=== PATIENT | male | born 1965 ===

== ENCOUNTER 2017-09-15 10:47 | Inpatient (IN) | payer MEDICARE, MEDICAID ==
[2017-09-15 10:47] VITALS: BMI 25.3
--- NOTE | 2017-09-15 11:50 | C.PDOC ---
History Of Present Illness 52 year old presents to the emergency department via EMS after brought my police. Patient was found by police walking down the street, smoking a cigarette with no clothes on after reported missing last night from [facility] in [place], [place]. Patient denies any complaints at this time. Time Seen by Provider: 09/15/17 11:23 Chief Complaint (Nursing): Psychiatric Evaluation History Per: Patient History/Exam Limitations: no limitations Past Medical History Reviewed: Historical Data, Nursing Documentation, Vital Signs Vital Signs: Last Vital Signs Temp 97.7 F 09/15/17 11:02 Pulse 80 09/15/17 11:02 Resp 20 09/15/17 11:02 BP 161/82 H 09/15/17 11:02 Pulse Ox 97 09/15/17 12:53 - Medical History PMH: Anxiety, Back Problems, Depression, Diabetes, Deep Vein Thrombosis (to left leg several years ago), Emphysema, HTN, Hypercholesterolemia, Hyperlipidemia, Schizophrenia Denies: Hepatitis, HIV, Chronic Kidney Disease, Seizures, Sexually Transmitted Disease Surgical History: Hernia Repair - [facility] GROUP PSYCHOTHERAPY (06/05/17) INDIVIDUAL PSYCHOTHERAPY, BEHAVIORAL (06/05/17) Family History: States: Unknown Family Hx - Social History Hx Alcohol Use: Yes Hx Substance Use: Yes - Immunization History Hx Influenza Vaccination: No Hx Pneumococcal Vaccination: No Review Of Systems Review Of Systems: ROS cannot be obtained secondary to pt's inabilty to answer questions. Physical Exam - Physical Exam Appears: Well, Non-toxic, Toxic Skin: Normal Color, Warm, Dry Head: Normacephalic Cardiovascular: Rhythm Regular, No Murmur Respiratory: Normal Breath Sounds, No Decreased Breath Sounds, No Accessory Muscle Use Gastrointestinal/Abdominal: Normal Exam, Soft, No Tenderness Extremity: Normal ROM, No Pedal Edema Neurological/Psych: Other (Oriented x2: Person and place) ED Course And Treatment - Laboratory Results Result Diagrams: 09/15/17 11:58 09/15/17 11:58 ECG Rhythm: Sinus Rhythm (Normal at 72 bpm. Normal interval. Normal axis. Positive artifact changes.), Nonspecific Changes (No obvious ST or T wave changes. ) O2 Sat by Pulse Oximetry: 97 (RA) Pulse Ox Interpretation: Normal Medical Decision Making Medical Decision Making: Time: 1144 EKG Acetaminphen Alcohol Serum Ammonia CMP Drug Screen, Urine Salicylate Troponin I CBC w/ diff Chest x-ray Blood and Urine culture Urinalysis Head CT Reevaluation Time: 1156 --Called Alejandro (Cable Television Technician from [facility]) at [phone] with no answer. Time: 1232 --Head CT FINDINGS: HEMORRHAGE: No intracranial hemorrhage. BRAIN: No mass effect or edema. Mild atrophy. Mild chronic microvascular ischemic changes. VENTRICLES: Prominent. No hydrocephalus. CALVARIUM: Unremarkable. PARANASAL SINUSES: Left maxillary sinus mucosal thickening. MASTOID AIR CELLS: Unremarkable as visualized. No inflammatory changes. OTHER FINDINGS: None. IMPRESSION: No acute intracranial pathology. patient medically cleared for crisis. Patient is now alert and oriented x 3. Crisis seen and accepted patient to psych for paranoid schizophrenia Disposition Discussed With DrMiriam: Selin Karimi Doctor Will See Patient In The: Hospital Counseled Patient/Family Regarding: Studies Performed, Diagnosis - Disposition Disposition: HOSPITALIZED Disposition Time: 16:12 Condition: FAIR Forms: [facility] (Malay) - Clinical Impression Clinical Impression: Paranoid schizophrenia - Scribe Statement Clara Johnson
[2017-09-15 12:08] LABS: BASO % 0.4 % (0.0-2.0); EOS # 0.1 K/uL (0.0-0.7); EOS % 1.6 % (0.0-4.0); HEMOGLOBIN 12.6 g/dL (12.0-18.0); LYMPH # 1.3 K/uL (1.0-4.3); LYMPH % 18.5 % (20.0-40.0); MEAN CELL VOLUME 93.2 fL (80.0-94.0); MEAN CORPUSCULAR HEMOGLOBIN 31.5 pg (27.0-31.0); MEAN CORPUSCULAR HGB CONC 33.8 g/dL (33.0-37.0); MEAN PLATELET VOLUME 9.8 fL (7.2-11.7); MONO # 0.5 K/uL (0.0-0.8); MONO % 7.3 % (0.0-10.0); NEUT # 4.9 K/uL (1.8-7.0); NEUT % 72.2 % (50.0-75.0); NRBC % 0.1 % (0.0-2.0); RED CELL DISTRIBUTION WIDTH 15.1 % (11.5-14.5); WHITE BLOOD COUNT 6.8 K/uL (4.8-10.8)
[2017-09-15 12:20] LABS: ACETAMINOPHEN < 10.0 ug/mL (10.0-30.0); SALICYLATE < 1.0 mg/dL 1
[2017-09-15 12:21] LABS: ALB/GLOB RATIO 1.3 (1.0-2.1); ALBUMIN 4.3 g/dL (3.5-5.0); CALCIUM 9.5 mg/dl (8.6-10.4); GFR AFRICAN-AMERICAN > 60; GFR NON-AFRICAN AMERICAN > 60
--- NOTE | 2017-09-15 12:31 | RAD ---
PROCEDURE: CHEST RADIOGRAPH, 1 VIEW HISTORY: AMS COMPARISON: None available. FINDINGS: LUNGS: Clear. PLEURA: No pneumothorax or pleural fluid seen. CARDIOVASCULAR: Normal. OSSEOUS STRUCTURES: Mild degenerative changes. VISUALIZED UPPER ABDOMEN: Normal. OTHER FINDINGS: None. IMPRESSION: No active disease.
[2017-09-15 12:33] LABS: ALT/SGPT 29 U/L (21-72); AST/SGOT 45 U/L (17-59); BLOOD UREA NITROGEN 11 mg/dL (9-20)
--- NOTE | 2017-09-15 12:34 | CT ---
PROCEDURE: CT HEAD WITHOUT CONTRAST. HISTORY: AMS COMPARISON: None available. TECHNIQUE: Axial computed tomography images were obtained through the head/brain without intravenous contrast. Radiation dose: Total exam DLP = 970.2 mGy-cm. This CT exam was performed using one or more of the following dose reduction techniques: Automated exposure control, adjustment of the mA and/or kV according to patient size, and/or use of iterative reconstruction technique. FINDINGS: HEMORRHAGE: No intracranial hemorrhage. BRAIN: No mass effect or edema. Mild atrophy. Mild chronic microvascular ischemic changes. VENTRICLES: Prominent. No hydrocephalus. CALVARIUM: Unremarkable. PARANASAL SINUSES: Left maxillary sinus mucosal thickening. MASTOID AIR CELLS: Unremarkable as visualized. No inflammatory changes. OTHER FINDINGS: None. IMPRESSION: No acute intracranial pathology.
[2017-09-15 14:12] LABS: SQUAMOUS EPITHIAL < 1 /hpf (0-5); URINE BILIRUBIN NEGATIVE (NEGATIVE); URINE BLOOD NEGATIVE (NEGATIVE); URINE CLARITY Clear (Clear); URINE COLOR Yellow (YELLOW); URINE GLUCOSE (UA) NORMAL (Normal); URINE LEUKOCYTE ESTERASE NEG Leu/uL (Negative); URINE PROTEIN NEGATIVE (NEGATIVE); URINE UROBILINOGEN NORMAL mg/dL (0.2-1.0)
[2017-09-15 14:40] LABS: BARBITURATES, UR NEGATIVE (NEGATIVE); BENZODIAZEPINES, UR NEGATIVE (NEGATIVE); OPIATES, UR NEGATIVE (NEGATIVE); PHENCYCLIDINE, UR NEGATIVE (NEGATIVE)
--- NOTE | 2017-09-15 17:36 | PCM.BM ---
<Jacinto Galvez - Last Filed: 09/15/17 17:33> Treatment Plan Problems - Problems identified on initial assessmt Schizophrenia Date Initiated: 09/15/17 Time Initiated: 17:30 Assessment reference: NA Status: Active Treatment assets and liabiliti Patient Assests: cooperative, self-reliant, ADL independent, negotiates basic needs Patient Liabilities: live alone (Lives on the street), financial problems ( Unemployed), poor support system (No family support), dietary restrictions (HTN) , medical problems (Hypertension) - Milieu Protocol Maintain good personal hygiene: daily Encourage regular showers, every shift Remind patient to perform daily oral care, every shift Assist patient to perform ADL's Conduct patient checks and document Observation sheet: Q15 minutes (For safety) Maintain personal safety: every shift Educate patient to report safety concerns to staff, every shift Monitor environment for contraband/sharps Medication safety: Monitor for expected outcome, potential side effects: every shift, Assess barriers to learning: every shift, Assess readiness for medication education: every shift <Selin Karimi - Last Filed: 09/17/17 10:46> - Diagnosis (1) Paranoid schizophrenia Status: Acute Interventions: 09/17/17 10:46 * Assess/adjust medications daily and /or as needed * See patient on an individual basis 7x/week to assess status of hallucinations * Discuss risks, benefits, side effects and alternatives of medications * <Irais Nguyen - Last Filed: 09/17/17 10:50> Family Contact Family involvement: Famliy/SO not involved - Goals for Treatment Patient goals for treatment: "I need my I.D." Discharge/Continuing Care - Education Needs Education Needs: Patient Medication, Patient Coping Skills, Patient Placement options, Patient Community resources - Discharge Discharge Criteria: Tolerates medication w/o severe side effects, Reduction of target symptoms Discharge to:: [facility] - Treatment Team Participation Discussed with Family/SO: No Was Patient/Family/SO present at Treatment Team Meeting: Yes
[2017-09-15] MEDS ORDERED: Albuterol HFA 90 mcg/actuation (8 g) IH PRN (17:46)
[2017-09-15] MEDS ORDERED: DiphenhydrAMINE 50 mg/ml Inj IM PRN (18:09)
[2017-09-15] MEDS: Omega-3-Acid Ethyl Esters 1 GM Cap PO SCH (20:25)
[2017-09-16] MEDS: Omega-3-Acid Ethyl Esters 1 GM Cap PO SCH ×2 (09:21→18:36)
--- NOTE | 2017-09-16 12:44 | PCM.PSYCH ---
Initial Psychiatric Evaluation - Initial Psychiatric Evaluation Type of Admission: Voluntary Legal Status: Capacity Chief Complaint (in patient's own words): I was hearing voices.' History of Present Illness and Precipitating Events: Patient is a 52 year old single HM, brought in by [facility] after he was a "missing person", found naked on the street in front of [facility]. As per the ED, he was a missing person, and found naked on the street in front of [facility]. He was shivering with cold. As per the hospital chart, patient has a long history of schizophrenia paranoid type continuous. He has history of multiple inpatient psychiatric hospitalizations, last discharge from [facility] and [facility]. He has a long history of noncompliance with the medications. Patient appeared internally preoccupied as Patient would take time to respond to the basic questions being asked and seemed to be responding to something internally prior to answering. Patient reported that he used to be a resident at the [facility], but has not resided there for two months. Patient went on to explain that [place] lives in the streets. Patient appears bizzare and disorganized as exhibited by his behavior. Patient remained isolated, and withdrawn in the unit. He still appears disorganized and internally preoccupied. He appears paranoid and delusional. However he denies any drinking or any drug abuse. Past medical history: H/O lung cancer, HTN. Current Medications: Active Medications Generic Name Dose Route Start Last Admin Trade Name Freq PRN Reason Stop Dose Admin Albuterol 2 puff 09/15/17 17:46 Ventolin Hfa 90 Mcg/Actuation (8 G) IH RQ4 PRN Shortness of Breath Aspirin 81 mg 09/16/17 10:00 09/16/17 09:25 Ecotrin PO 81 mg DAILY CARLOS Administration Benztropine Mesylate 1 mg 09/15/17 22:00 09/15/17 21:38 Cogentin PO 1 mg HS CARLOS Administration Clonazepam 1 mg 09/15/17 18:00 09/16/17 09:21 Klonopin PO 1 mg BID CARLOS Administration Diphenhydramine HCl 50 mg 09/15/17 18:09 Benadryl IM Q6 PRN Agitation Fluphenazine HCl 5 mg 09/15/17 22:00 09/15/17 21:38 Prolixin PO 5 mg HS CARLOS Administration Lorazepam 1 mg 09/15/17 17:23 Ativan PO Q6 PRN Anxiety Lorazepam 2 mg 09/15/17 18:09 Ativan IM Q6H PRN Severe Anxiety Metformin HCl 500 mg 09/16/17 10:00 09/16/17 09:21 Glucophage Xr PO 500 mg DAILY CARLOS Administration Ctcpn-4-Hlxi Ethyl Esters 1 gm 09/15/17 18:00 09/16/17 09:21 Lovaza PO 1 gm BID CARLOS Administration Rosuvastatin Calcium 5 mg 09/15/17 22:00 09/15/17 21:39 Crestor PO Not Given HS CARLOS Topiramate 50 mg 09/15/17 18:00 09/16/17 09:21 Topamax PO 50 mg BID CARLOS Administration Past Psychiatric History - Past Psychiatric History Previous Treatment History: Inpatient Pertinent Medical Hx (Current Medical&Sleep Prob, Allergies): Allergies Allergy/AdvReac Type Severity Reaction Status Date / Time chlorpromazine HCl Allergy other Verified 09/15/17 11:00 [From Thorazine] haloperidol [From Haldol] Allergy other Verified 09/15/17 11:00 haloperidol lactate Allergy other Verified 09/15/17 11:00 [From Haldol] Penicillins Allergy CONGESTION Verified 09/15/17 11:00 PORK Allergy NAUSEA Verified 09/15/17 11:00 Aspirin [Ecotrin] 81 mg PO DAILY 04/29/16 Atorvastatin [Lipitor] 10 mg PO DAILY 02/13/17 Metformin ER [Glucophage XR] 500 mg PO DAILY 02/13/17 Nebivolol [Bystolic] 10 mg PO DAILY 02/13/17 Albuterol Sulfate [Proair Hfa] 2 puff IH Q4H PRN 06/05/17 Apixaban [Eliquis] 2.5 mg PO Q12H 06/05/17 Umzik-8-[id number] Ethyl Esters 1 GM [Lovaza] 1 gm PO BID 06/05/17 Benztropine [Cogentin] 1 tab PO BID 08/11/17 Topiramate [Topamax] 1 tab PO BID 08/11/17 cloZAPine [Clozaril] 2 tab PO HS 08/11/17 cloZAPine [Clozaril] 2 tab PO HS 08/11/17 fluPHENAZine [Prolixin] 1 tab PO HS 08/11/17 Review of Systems - Review of Systems All systems: reviewed and no additional remarkable complaints except - Psychiatric Psychiatric: Anxiety, Auditory Hallucinations, Irritability, Paranoia Mental Status Examination - Personal Presentation Personal Presentation: Looks stated age - Affect Affect: Constricted - Motor Activity Motor Activity: Psychomotor Retardation - Reliability in Providing Information Reliability in Providing Information: Poor, due to alteration in thoughts, Poor , due to altered mood - Speech Speech: Disorganized - Mood Mood: Anxious - Formal Thought Process Formal Thought Process: Hallucinations, Delusions, Paranoia, Loosening of associations - Hallucinations/Delusions Hallucinations: Auditory Delusions: Persecution - Obsessions/Compulsions Obsessions: No Compulsions: No - Cognitive Functions Orientation: Person, Place, Situation, Time Sensorium: Alert Attention/Concentration: Attentive Abstract Thinking: Winn Estimate of Intelligence: Below average Judgement: Imparied, as evidence by: Poor judgement, Imparied, as evidence by: Lack of insight into illness - Risk Risk: Diminished functioning - Limitations Limitations: Living alone DSM 5 DX - DSM 5 DSM 5 Diagnosis: Schizophrenia paranoid type continuous - Recommended/Plan of Treatment Treatment Recommendations and Plan of Treatment: Schizophrenia paranoid type continuous CBT Psychoeducation Supportive therapy, group therapy, individual therapy Prolixin 5 mg by mouth at bedtime Cogentin 1 mg by mouth HS Topiramate 50 mg by mouth twice a day Klonopin 1 mg by mouth twice a day DM Continue prescribed medications metformin Asthma Continue prescribed medications Inhaler - Smoking Cessation Smoking Cessation Initiated: No
[2017-09-17] MEDS: Omega-3-Acid Ethyl Esters 1 GM Cap PO SCH ×2 (09:47→17:04)
--- NOTE | 2017-09-17 10:46 | PCM.PYCHPN ---
Psychiatric Progress Note - Psychiatric Progress Note Patient seen today, length of contact: 15 min Patient Chief Complaint: I'm feeling okay Problems Identified/Issues Discussed: Patient seen and evaluated, chart reviewed and discussed with the nurse. Patient remained disorganized and internally preoccupied. Patient remained isolated, confined and withdrawn. He still appears paranoid and delusional. He is still pacing back and forth in the hallways and appears disheveled and unkempt. He is taking medication and denies any side effects. He needs more time for stabilization. Supportive therapy and psychoeducation were given.a Medication Change: Yes (Increase Prolixin) Medical Record Reviewed: Yes Mental Status Examination - Cognitive Function Orientation: Person, Place, Situation, Time Memory: Intact Attention: WNL Concentration: Poor Association: Loose Fund of Knowledge: Poor - Mood Mood: Anxious - Affect Affect: Constricted - Speech Speech: Soft - Formal Thought Process Formal Thought Process: Hallucinations, Delusions, Paranoia - Suicidal Ideation Suicidal Ideation: No - Homicidal Ideation Homicidal Ideation: No Goal/Treatment Plan - Goal/Treatment Plan Need for Continued Stay: Severe depression anxiety, Severe functional impairment Progress Toward Problem(s) and Goals/Treatment Plan: Schizophrenia paranoid type continuous CBT Psychoeducation Supportive therapy, group therapy, individual therapy Prolixin 5 mg by mouth BID Cogentin 1 mg by mouth BID Topiramate 50 mg by mouth twice a day Klonopin 1 mg by mouth twice a day DM Continue prescribed medications metformin Asthma Continue prescribed medications Inhaler - Smoking Cessation Smoking Cessation Initiated: No
[2017-09-18] MEDS: Omega-3-Acid Ethyl Esters 1 GM Cap PO SCH ×2 (10:04→17:26)
--- NOTE | 2017-09-18 10:37 | PCM.PYCHPN ---
Psychiatric Progress Note - Psychiatric Progress Note Patient seen today, length of contact: 15 min Patient Chief Complaint: I'm feeling okay Problems Identified/Issues Discussed: Patient seen and evaluated, chart reviewed and discussed with the nurse. Patient still appears paranoid and delusional. He remained disorganized and internally preoccupied. Patient remained isolated, confined and withdrawn. He is still pacing back and forth in the hallways and appears disheveled and unkempt. He was seen counting and talking to himself. Appears to be paying very close attention to his footsteps. He is taking medication and denies any side effects. He needs more time for stabilization. Supportive therapy and psychoeducation were given Medication Change: Yes (Increase Prolixin) Medical Record Reviewed: Yes Mental Status Examination - Cognitive Function Orientation: Person, Place, Situation, Time Memory: Intact Attention: WNL Concentration: Poor Association: Loose Fund of Knowledge: Poor - Mood Mood: Anxious - Affect Affect: Constricted - Speech Speech: Soft - Formal Thought Process Formal Thought Process: Hallucinations, Delusions, Paranoia - Suicidal Ideation Suicidal Ideation: No - Homicidal Ideation Homicidal Ideation: No Goal/Treatment Plan - Goal/Treatment Plan Need for Continued Stay: Severe depression anxiety, Severe functional impairment Progress Toward Problem(s) and Goals/Treatment Plan: Schizophrenia paranoid type continuous CBT Psychoeducation Supportive therapy, group therapy, individual therapy Prolixin 10 mg by mouth BID Cogentin 1 mg by mouth BID Topiramate 50 mg by mouth twice a day Klonopin 1 mg by mouth twice a day DM Continue prescribed medications metformin Asthma Continue prescribed medications Inhaler
[2017-09-19] MEDS: Omega-3-Acid Ethyl Esters 1 GM Cap PO SCH ×2 (10:09→17:44)
--- NOTE | 2017-09-19 10:55 | PCM.PYCHPN ---
Psychiatric Progress Note - Psychiatric Progress Note Patient seen today, length of contact: 15 min Patient Chief Complaint: I'm feeling okay Problems Identified/Issues Discussed: Patient seen and evaluated, chart reviewed and discussed with the nurse. Patient remained disorganized and internally preoccupied. Patient remained isolated, confined and withdrawn. He still appears paranoid and delusional. He is still pacing back and forth in the hallways and appears disheveled and unkempt. He was seen counting and talking to himself. Appears to be paying very close attention to his footsteps. Patient very agitated and believes staff is out to get him. He is taking medication and denies any side effects. He needs more time for stabilization. Supportive therapy and psychoeducation were given.a Medication Change: Yes (Increase Prolixin) Medical Record Reviewed: Yes Mental Status Examination - Cognitive Function Orientation: Person, Place, Situation, Time Memory: Intact Attention: WNL Concentration: Poor Association: Loose Fund of Knowledge: Poor - Mood Mood: Anxious - Affect Affect: Constricted - Speech Speech: Soft - Formal Thought Process Formal Thought Process: Hallucinations, Delusions, Paranoia - Suicidal Ideation Suicidal Ideation: No - Homicidal Ideation Homicidal Ideation: No Goal/Treatment Plan - Goal/Treatment Plan Need for Continued Stay: Severe depression anxiety, Severe functional impairment Progress Toward Problem(s) and Goals/Treatment Plan: Schizophrenia paranoid type continuous CBT Psychoeducation Supportive therapy, group therapy, individual therapy Prolixin 5 mg by mouth BID Cogentin 1 mg by mouth BID Topiramate 50 mg by mouth twice a day Klonopin 1 mg by mouth twice a day DM Continue prescribed medications metformin Asthma Continue prescribed medications Inhaler
[2017-09-20] MEDS: Omega-3-Acid Ethyl Esters 1 GM Cap PO SCH ×2 (09:44→18:24)
--- NOTE | 2017-09-20 18:24 | CARD ---
APPROVED REPORT EKG Measurement Heart [id number] <Conclusion> Normal sinus rhythm Nonspecific ST abnormality Abnormal ECG
[2017-09-21] MEDS: Omega-3-Acid Ethyl Esters 1 GM Cap PO SCH ×2 (09:39→18:21)
--- NOTE | 2017-09-21 17:18 | PCM.PYCHPN ---
Psychiatric Progress Note - Psychiatric Progress Note Patient seen today, length of contact: 15 min Patient Chief Complaint: I'm feeling okay Problems Identified/Issues Discussed: Patient seen and evaluated, chart reviewed and discussed with the nurse. As per the staff, patient remained disorganized and internally preoccupied. He is still pacing back and forth in the hallways and appears disheveled and unkempt. He was seen counting and talking to himself. Patient still appears paranoid and delusional. However he is taking medication and denies any side effects. Symptoms are improving but he needs more time for stabilization. Supportive therapy and psychoeducation were given Medication Change: Yes (Start Seroquel) Medical Record Reviewed: Yes Mental Status Examination - Cognitive Function Orientation: Person, Place, Situation, Time Memory: Intact Attention: WNL Concentration: Poor Association: Loose Fund of Knowledge: Poor - Mood Mood: Anxious - Affect Affect: Constricted - Speech Speech: Soft - Formal Thought Process Formal Thought Process: Hallucinations, Delusions, Paranoia - Suicidal Ideation Suicidal Ideation: No - Homicidal Ideation Homicidal Ideation: No Goal/Treatment Plan - Goal/Treatment Plan Need for Continued Stay: Severe depression anxiety, Severe functional impairment Progress Toward Problem(s) and Goals/Treatment Plan: Schizophrenia paranoid type continuous CBT Psychoeducation Supportive therapy, group therapy, individual therapy Prolixin 10 mg by mouth BID Cogentin 1 mg by mouth BID Topiramate 50 mg by mouth twice a day Klonopin 1 mg by mouth twice a day Seroquel 100 mg PO QHS DM Continue prescribed medications metformin Asthma Continue prescribed medications Inhaler
[2017-09-22] MEDS: Omega-3-Acid Ethyl Esters 1 GM Cap PO SCH ×2 (09:46→17:36)
[2017-09-23] MEDS: Omega-3-Acid Ethyl Esters 1 GM Cap PO SCH ×2 (09:36→18:58)
--- NOTE | 2017-09-24 04:37 | PCM.PYCHPN ---
Psychiatric Progress Note - Psychiatric Progress Note Patient seen today, length of contact: 15 min Medication Change: Yes (Increase Prolixin) Medical Record Reviewed: Yes Mental Status Examination - Cognitive Function Orientation: Person, Place, Situation, Time Memory: Intact Attention: WNL Concentration: Poor Association: Loose Fund of Knowledge: Poor - Mood Mood: Anxious - Affect Affect: Constricted - Speech Speech: Soft - Formal Thought Process Formal Thought Process: Hallucinations, Delusions, Paranoia - Suicidal Ideation Suicidal Ideation: No - Homicidal Ideation Homicidal Ideation: No Goal/Treatment Plan - Goal/Treatment Plan Need for Continued Stay: Severe depression anxiety, Severe functional impairment
[2017-09-24] MEDS: Omega-3-Acid Ethyl Esters 1 GM Cap PO SCH ×2 (09:59→17:16)
--- NOTE | 2017-09-24 10:22 | PCM.BM ---
<Irais Nguyen - Last Filed: 09/24/17 14:31> Treatment Plan Problems - Problems identified on initial assessmt Schizophrenia Date Initiated: 09/15/17 Time Initiated: 17:30 Assessment reference: NA Status: Active Treatment assets and liabiliti Patient Assests: cooperative, self-reliant, ADL independent, negotiates basic needs Patient Liabilities: live alone (Lives on the street), financial problems ( Unemployed), poor support system (No family support), dietary restrictions (HTN) , medical problems (Hypertension) - Milieu Protocol Maintain good personal hygiene: daily Encourage regular showers, every shift Remind patient to perform daily oral care, every shift Assist patient to perform ADL's Conduct patient checks and document Observation sheet: Q15 minutes (For safety) Maintain personal safety: every shift Educate patient to report safety concerns to staff, every shift Monitor environment for contraband/sharps Medication safety: Monitor for expected outcome, potential side effects: every shift, Assess barriers to learning: every shift, Assess readiness for medication education: every shift Milieu Narrative: Schizophrenia paranoid type continuous CBT Psychoeducation Supportive therapy, group therapy, individual therapy Prolixin 10 mg by mouth BID Cogentin 1 mg by mouth BID Topiramate 50 mg by mouth twice a day Klonopin 1 mg by mouth twice a day DM Continue prescribed medications metformin Asthma Continue prescribed medications Inhaler Family Contact Family involvement: Famliy/SO not involved - Goals for Treatment Patient goals for treatment: "I need my I.D." Discharge/Continuing Care - Education Needs Education Needs: Patient Medication, Patient Coping Skills, Patient Placement options, Patient Community resources - Discharge Discharge Criteria: Tolerates medication w/o severe side effects, Reduction of target symptoms [facility]:: [facility] - Treatment Team Participation Patient/Family/SO Statement: Schizophrenia paranoid type continuous CBT Psychoeducation Supportive therapy, group therapy, individual therapy Prolixin 10 mg by mouth BID Cogentin 1 mg by mouth BID Topiramate 50 mg by mouth twice a day Klonopin 1 mg by mouth twice a day DM Continue prescribed medications metformin Asthma Continue prescribed medications Inhaler Discussed with Family/SO: No Was Patient/Family/SO present at Treatment Team Meeting: Yes Treatment Plan Review - Problem Schizophrenia Time Initiated: 17:30 - Discharge / Continuing Care [facility]:: [facility] Residential treatment Health Needs: Medications/Rx <Elsi Lovett - Last Filed: 09/25/17 14:13> Treatment Plan Review - Problem Schizophrenia Date Initiated: 09/25/17 Progress toward outcomes: improved
--- NOTE | 2017-09-24 13:41 | PCM.PYCHPN ---
Psychiatric Progress Note - Psychiatric Progress Note Patient seen today, length of contact: 15 minutes Patient Chief Complaint: "I feel alright" Problems Identified/Issues Discussed: The pt is seen, chart reviewed, case discussed with staff. During the encounter, patient made minimal eye contact, often looking at the ground. He states that "I feel fine today". Patient does admit to seeing shadows and hearing voices, only stating that "I hear good voices and bad voices ". Does not elaborate any further. As per RNs, patient is noted to frequently pacee back and forth through the hallway. When asked why, patient replied "I just always walk around". No other complaints are noted. No remarkable events reported. The pt is compliant with medications and no side-effects noted. Symptoms improving and patient needs more time to stabilize. After care discussed, support and psychoeducation given. Medical Problems: Hypertension Diagnostic Results: Reviewed DSM 5 Symptoms Update: Some improvement with treatment Medication Change: No Medical Record Reviewed: Yes Mental Status Examination - Cognitive Function Orientation: Person, Place, Situation, Time Memory: Intact Attention: WNL Concentration: WNL Association: Loose Fund of Knowledge: WNL Decription of patient's judgement and insights: Fair - Mood Mood: Anxious - Affect Affect: Blunted - Speech Speech: Soft - Formal Thought Process Formal Thought Process: Hallucinations, Delusions, Paranoia, Loosening of associations - Suicidal Ideation Suicidal Ideation: No - Homicidal Ideation Homicidal Ideation: No Goal/Treatment Plan - Goal/Treatment Plan Need for Continued Stay: Remain at risks for inpatient hospitalization, Discharge may exacerbated symptoms, Severe functional impairment Progress Toward Problem(s) and Goals/Treatment Plan: Continue medications Support and psychoeducation daily Attend groups and activities daily After care planning by MUSA/cam Hyde. Estimated Date of D/C: 10/01/17 - Smoking Cessation Smoking Cessation Initiated: No
[2017-09-25] MEDS: Omega-3-Acid Ethyl Esters 1 GM Cap PO SCH ×2 (10:44→17:56)
--- NOTE | 2017-09-25 12:06 | PCM.PYCHPN ---
Psychiatric Progress Note - Psychiatric Progress Note Patient seen today, length of contact: 15 minutes Patient Chief Complaint: "I still hear voices" Problems Identified/Issues Discussed: The pt is seen, chart reviewed, case discussed with staff. Patient minimally verbal today. When asked if he is hearing or seeing things he replied, "Yeah, I hear voices". He denied current SI/HI. No other complaints are noted. No remarkable events were reported. The pt is compliant with medications and reports no side-effects noted. Symptoms improving and patient needs more time to stabilize. After care discussed, support and psychoeducation given. Medical Problems: Hypertension Diagnostic Results: Reviewed DSM 5 Symptoms Update: Some improvement with treatment Medication Change: No Medical Record Reviewed: Yes Mental Status Examination - Cognitive Function Orientation: Person, Place, Situation, Time Memory: Intact Attention: WNL Concentration: WNL Association: Loose Fund of Knowledge: WNL - Mood Mood: Anxious - Affect Affect: Blunted - Speech Speech: Soft - Formal Thought Process Formal Thought Process: Hallucinations, Delusions, Paranoia, Loosening of associations - Suicidal Ideation Suicidal Ideation: No - Homicidal Ideation Homicidal Ideation: No Goal/Treatment Plan - Goal/Treatment Plan Need for Continued Stay: Remain at risks for inpatient hospitalization, Discharge may exacerbated symptoms, Severe functional impairment Progress Toward Problem(s) and Goals/Treatment Plan: Continue medications Support and psychoeducation daily Attend groups and activities daily After care planning by MUSA Estimated Date of D/C: 10/01/17 - Smoking Cessation Smoking Cessation Initiated: No
[2017-09-26] MEDS: Omega-3-Acid Ethyl Esters 1 GM Cap PO SCH ×2 (09:56→18:18)
--- NOTE | 2017-09-26 10:34 | PCM.PYCHPN ---
Psychiatric Progress Note - Psychiatric Progress Note Patient seen today, length of contact: 15 min Patient Chief Complaint: "I'm good" Problems Identified/Issues Discussed: The pt is seen, chart reviewed, case discussed with staff. As per RNs, patient was noted to have an episode of confusion and disorientation in the early hours of the morning today. He was noted of having urinated in the room and needed assistance returning back to his bed. Patient was later seen and evaluated. Again, he remains minimally verbal and maintains poor eye contact. He denied current SI/HI. No other complaints are noted. The pt is compliant with medications. Symptoms improving and patient needs more time to stabilize. After care discussed, support and psychoeducation given. Medical Problems: Hypertension Diagnostic Results: Reviewed DSM 5 Symptoms Update: Improving with treatment Medication Change: Yes (Dose of Seroquel increased to 200 mg at bedtime) Medical Record Reviewed: Yes Mental Status Examination - Cognitive Function Orientation: Person, Place, Situation, Time Memory: Intact Attention: WNL Concentration: WNL Association: Loose Fund of Knowledge: WNL - Mood Mood: Depressed (Less than before) - Affect Affect: Blunted - Speech Speech: Soft Additional comments: impoverished - Formal Thought Process Formal Thought Process: Hallucinations, Delusions, Paranoia, Loosening of associations - Suicidal Ideation Suicidal Ideation: No - Homicidal Ideation Homicidal Ideation: No Goal/Treatment Plan - Goal/Treatment Plan Need for Continued Stay: Remain at risks for inpatient hospitalization, Discharge may exacerbated symptoms, Severe functional impairment Progress Toward Problem(s) and Goals/Treatment Plan: Continue medications Support and psychoeducation daily Attend groups and activities daily Patient may get benefit from injection Prolixin Decanoate. After care planning by MUSA Estimated Date of D/C: 10/01/17 - Smoking Cessation Smoking Cessation Initiated: No
[2017-09-27] MEDS: Omega-3-Acid Ethyl Esters 1 GM Cap PO SCH ×2 (09:07→17:14)
--- NOTE | 2017-09-27 11:39 | PCM.PYCHPN ---
Psychiatric Progress Note - Psychiatric Progress Note Patient seen today, length of contact: 15 min Patient Chief Complaint: "I feel better" Problems Identified/Issues Discussed: The pt is seen, chart reviewed, case discussed with staff. Patient states "I feel better". Denies hearing any voices or seeing any shadows/objects. His speech is still impoverished, as remains minimally verbal, despite questioning. He denied current SI/HI. No other complaints are noted. The pt is compliant with medications. Will continue to monitor. After care discussed, support and psychoeducation given. Medical Problems: Hypertension Diagnostic Results: Reviewed DSM 5 Symptoms Update: Improving with treatment Medication Change: Yes (Dose of Cogentin increased to 1 mg 3 times a day) Medical Record Reviewed: Yes Mental Status Examination - Cognitive Function Orientation: Person, Place, Time Memory: Intact Attention: WNL Concentration: WNL Association: Loose Fund of Knowledge: Poor Decription of patient's judgement and insights: Fair - Mood Mood: Depressed (Less than before) - Affect Affect: Blunted - Speech Speech: Soft - Language Additional comments: impoverished - Formal Thought Process Formal Thought Process: Loosening of associations - Suicidal Ideation Suicidal Ideation: No - Homicidal Ideation Homicidal Ideation: No Goal/Treatment Plan - Goal/Treatment Plan Need for Continued Stay: Remain at risks for inpatient hospitalization, Discharge may exacerbated symptoms, Severe functional impairment Progress Toward Problem(s) and Goals/Treatment Plan: Continue medications Support and psychoeducation daily Attend groups and activities daily Patient may get benefit from injection Prolixin Decanoate. After care planning by MUSA Estimated Date of D/C: 10/01/17 - Smoking Cessation Smoking Cessation Initiated: No
[2017-09-28] MEDS: Omega-3-Acid Ethyl Esters 1 GM Cap PO SCH ×3 (09:34→17:14)
--- NOTE | 2017-09-28 12:03 | PCM.PYCHPN ---
Psychiatric Progress Note - Psychiatric Progress Note Patient seen today, length of contact: 15 min Patient Chief Complaint: "I'm alright" Problems Identified/Issues Discussed: The pt is seen, chart reviewed, case discussed with staff. As per RNs, patient was walking around most of last night, and had appeared confused. This morning, patient still appears confused. He is awake, alerted and oriented to person and place. He understands the situation that he is in a hospital in [place], but unable to provided a hospital name. When asked the time, patient stated that it's September 2018. He knew that the current president is Trump but said that the last president was "Rodríguez". Patient was more verbal today, stating that he feels "alright" and that "my mood is better now". When asked if he is hearing voices today, he said "Yeah I hear voices sometimes". The pt has been compliant with his medications. Will continue to monitor. After care discussed, support and psychoeducation given. Patient states that he wants to go home and find an apartment, that he was in a [facility] before [facility] here, but he does not want to go back. Medical Problems: Hypertension Diagnostic Results: Reviewed DSM 5 Symptoms Update: improving with treatment Medication Change: No Medical Record Reviewed: Yes Mental Status Examination - Cognitive Function Orientation: Person, Place (refer to [facility]) Memory: Intact Attention: WNL Concentration: WNL Association: Loose Fund of Knowledge: WNL Decription of patient's judgement and insights: Fair - Mood Mood: Depressed (Less than before) - Affect Affect: Blunted - Speech Speech: Soft - Formal Thought Process Formal Thought Process: Hallucinations, Loosening of associations - Suicidal Ideation Suicidal Ideation: No - Homicidal Ideation Homicidal Ideation: No Goal/Treatment Plan - Goal/Treatment Plan Need for Continued Stay: Remain at risks for inpatient hospitalization, Discharge may exacerbated symptoms, Severe functional impairment Progress Toward Problem(s) and Goals/Treatment Plan: Continue medications Support and psychoeducation daily Attend groups and activities daily Patient may get benefit from injection Prolixin Decanoate. After care planning by MUSA Estimated Date of D/C: 10/01/17 - Smoking Cessation Smoking Cessation Initiated: No
[2017-09-29] MEDS: Omega-3-Acid Ethyl Esters 1 GM Cap PO SCH ×2 (09:09→18:46)
--- NOTE | 2017-09-29 21:49 | PCM.PYCHPN ---
Psychiatric Progress Note - Psychiatric Progress Note Patient seen today, length of contact: 15 min Patient Chief Complaint: "Nothing" Problems Identified/Issues Discussed: The pt is seen, chart reviewed, case discussed with staff. The pt is compliant with medications and reports no side-effects. Symptoms are improving but needs more time to stabilize. Very poor functioning and could be at his baseline Support and psychoeducation given. Medication Change: No Medical Record Reviewed: Yes Mental Status Examination - Cognitive Function Orientation: Person, Place (refer to [facility]), Time Memory: Impaired Attention: Poor Concentration: Poor Association: Loose Fund of Knowledge: Poor - Mood Mood: Depressed (Less than before) - Affect Affect: Blunted - Speech Speech: Soft - Formal Thought Process Formal Thought Process: Hallucinations, Loosening of associations - Suicidal Ideation Suicidal Ideation: No - Homicidal Ideation Homicidal Ideation: No Goal/Treatment Plan - Goal/Treatment Plan Need for Continued Stay: Remain at risks for inpatient hospitalization, Discharge may exacerbated symptoms, Severe functional impairment Progress Toward Problem(s) and Goals/Treatment Plan: Continue medications Support and psychoeducation daily Attend groups and activities daily After care planning by MUSA Estimated Date of D/C: 10/01/17
[2017-09-30] MEDS: Omega-3-Acid Ethyl Esters 1 GM Cap PO SCH ×2 (09:47→19:42)
--- NOTE | 2017-09-30 23:22 | PCM.PYCHPN ---
Psychiatric Progress Note - Psychiatric Progress Note Patient seen today, length of contact: 16 min Patient Chief Complaint: None Seen as a follow up Problems Identified/Issues Discussed: The pt is seen, chart reviewed, case discussed with staff. The pt is compliant with medications and reports no side-effects. Symptoms are improving but needs more time to stabilize. Still odd and internally preoccupied Support and psychoeducation given. Medication Change: No Medical Record Reviewed: Yes Mental Status Examination - Cognitive Function Orientation: Person, Place (refer to [facility]), Time Memory: Impaired Attention: Poor Concentration: Poor Association: Loose Fund of Knowledge: Poor - Mood Mood: Depressed (Less than before) - Affect Affect: Blunted - Speech Speech: Soft - Formal Thought Process Formal Thought Process: Hallucinations, Loosening of associations - Suicidal Ideation Suicidal Ideation: No - Homicidal Ideation Homicidal Ideation: No Goal/Treatment Plan - Goal/Treatment Plan Need for Continued Stay: Remain at risks for inpatient hospitalization, Discharge may exacerbated symptoms, Severe functional impairment Progress Toward Problem(s) and Goals/Treatment Plan: Continue medications Support and psychoeducation daily Attend groups and activities daily After care planning by MUSA Estimated Date of D/C: 10/01/17
--- NOTE | 2017-10-01 10:20 | PCM.PYCHPN ---
Psychiatric Progress Note - Psychiatric Progress Note Patient seen today, length of contact: 16 min Patient Chief Complaint: I'm feeling okay Problems Identified/Issues Discussed: Patient seen and evaluated, chart reviewed and discussed with the nurse. Patient still appears paranoid and delusional. He remained disorganized and internally preoccupied. Patient remained isolated, confined and withdrawn. He is still pacing back and forth in the hallways and appears disheveled and unkempt. He was seen counting and talking to himself. Appears to be paying very close attention to his footsteps. He is taking medication and denies any side effects. He needs more time for stabilization. Supportive therapy and psychoeducation were given Medication Change: No Medical Record Reviewed: Yes Mental Status Examination - Cognitive Function Orientation: Person, Place (refer to [facility]), Time Memory: Impaired Attention: Poor Concentration: Poor Association: Loose Fund of Knowledge: Poor - Mood Mood: Depressed (Less than before) - Affect Affect: Blunted - Speech Speech: Soft - Formal Thought Process Formal Thought Process: Hallucinations, Loosening of associations - Suicidal Ideation Suicidal Ideation: No - Homicidal Ideation Homicidal Ideation: No Goal/Treatment Plan - Goal/Treatment Plan Need for Continued Stay: Remain at risks for inpatient hospitalization, Discharge may exacerbated symptoms, Severe functional impairment Progress Toward Problem(s) and Goals/Treatment Plan: Schizophrenia paranoid type continuous CBT Psychoeducation Supportive therapy, group therapy, individual therapy Prolixin 10 mg by mouth BID Cogentin 1 mg by mouth BID Topiramate 50 mg by mouth twice a day Klonopin 1 mg by mouth twice a day DM Continue prescribed medications metformin Asthma Continue prescribed medications Inhaler Estimated Date of D/C: 10/01/17
[2017-10-01 21:27] VITALS: PULSE 65
[2017-10-02 05:37] VITALS: BP 123/80; RESP 18; TEMP 96.6; O2SAT 99
--- NOTE | 2017-10-02 10:43 | PCM.PYCHDC ---
Mental Status Examination - Mental Status Examination Orientation: Person, Place, Situation, Time Memory: Intact Mood: Neutral Affect: Constricted Speech: Soft Attention: WNL Concentration: WNL Association: WNL Fund of Knowledge: WNL Formal Thought Process: No Impairment Description of patient's judgement and insight: good, fair Psychotic Thoughts and Behaviors: denies any AVH Suicidal Ideation: No Current Homicidal Ideation?: No Discharge Summary - Discharge Note Reason for Hospitalization: Patient is a 52 year old single HM, brought in by [facility] and [facility] after he was a "missing person", found naked on the street in front of [facility]. As per the ED, he was a missing person, and found naked on the street in front of [facility]. He was shivering with cold. As per the hospital chart, patient has a long history of schizophrenia paranoid type continuous. He has history of multiple inpatient psychiatric hospitalizations, last discharge from [facility] and [facility]. He has a long history of noncompliance with the medications. Patient appeared internally preoccupied as Patient would take time to respond to the basic questions being asked and seemed to be responding to something internally prior to answering. Patient reported that he used to be a resident at the [facility], but has not resided there for two months. Patient went on to [place]. Patient appears bizzare and disorganized as exhibited by his behavior. Patient remained isolated, and withdrawn in the unit. He still appears disorganized and internally preoccupied. He appears paranoid and delusional. However he denies any drinking or any drug abuse. Laboratory Data: Abnormal Lab Results 10/02/17 07:43 POC Glucose (mg/dL) 81 Consultations:: List each consultation separately and include: 1. Reason for request. 2. Findings. 3. Follow-up Summary of Hospital Course include:: 1. Description of specific treatment plan utilized for patients during their course of treatmen. 2. Summarize the time- course for resolution of acute symptoms and/or regressed behaviors. 3. Describe issues identified and worked on during hospitalization. 4. Describe medication utilized. 5. Describe medical problems identified and treated. 6. Reassessment of suicide risk Summary of Hospital Course: Patient is a 52 year old single HM, brought in by [facility] and [facility] after he was a "missing person", found naked on the street in front of [facility]. As per the ED, he was a missing person, and found naked on the street in front of [facility]. He was shivering with cold. As per the hospital chart, patient has a long history of schizophrenia paranoid type continuous. He has history of multiple inpatient psychiatric hospitalizations, last discharge from [facility] and [facility]. He has a long history of noncompliance with the medications. Patient appeared internally preoccupied as Patient would take time to respond to the basic questions being asked and seemed to be responding to something internally prior to answering. Patient reported that he used to be a resident at the [facility], but has not resided there for two months. Patient went on to explain [place]. Patient appears bizzare and disorganized as exhibited by his behavior. Patient remained isolated, and withdrawn in the unit. He still appears disorganized and internally preoccupied. He appears paranoid and delusional. However he denies any drinking or any drug abuse. Past medical history: H/O lung cancer, HTN. - Diagnosis (1) Paranoid schizophrenia Current Visit: Yes Status: Acute - Final Diagnosis (DSM 5) Condition upon Discharge: FAIR Disposition: HOME/ ROUTINE Follow-up Treatment Plan: Schizophrenia paranoid type continuous CBT Psychoeducation Supportive therapy, group therapy, individual therapy Prolixin 10 mg by mouth BID Cogentin 1 mg by mouth BID Topiramate 50 mg by mouth twice a day Klonopin 1 mg by mouth twice a day DM Continue prescribed medications metformin Asthma Continue prescribed medications Inhaler Prescriptions/Medication Reconciliation: Aspirin [Ecotrin] 81 mg PO DAILY #30 tablet. Atorvastatin [Lipitor] 10 mg PO DAILY #30 tab Benztropine [Cogentin] 1 mg PO BID #60 tab fluPHENAZine [Prolixin] 10 mg PO BID #60 tab Metformin ER [Glucophage XR] 500 mg PO DAILY #30 ter QUEtiapine [Seroquel] 200 mg PO HS #30 tab - Smoking Cessation Smoking Cessation Medication prescribed: No - Antipsychotic Medications Pt discharged on 2 or more routine antipsychotic medications: No
== END 2017-10-02 14:50 | disposition home or self-care (01) | DRG 885 ==
LOC: C.ER 10:47 → C.5E 16:42
PROVIDERS: ADMIT Psychiatry & Neurology Psychiatry; ATTEND Psychiatry & Neurology Psychiatry
PROC: GZ3ZZZZ Medication Management (ICD-10-PCS; principal; 2017-09-15)
PROC: GZHZZZZ Group Psychotherapy (ICD-10-PCS; 2017-09-15)
PROC: GZ56ZZZ Individual Psychotherapy, Supportive (ICD-10-PCS; 2017-09-15)
DX: F20.0 Paranoid schizophrenia (principal); Z91.14 Patient's other noncompliance with medication regimen; J43.9 Emphysema, unspecified; E11.9 Type 2 diabetes mellitus without complications; I10 Essential (primary) hypertension; J45.909 Unspecified asthma, uncomplicated; E78.00 Pure hypercholesterolemia, unspecified; E78.5 Hyperlipidemia, unspecified; Z79.899 Other long term (current) drug therapy; Z85.118 Personal history of other malignant neoplasm of bronchus and lung; Z59.0 Homelessness

== ENCOUNTER 2017-10-02 23:05 | Emergency (ER) | payer MEDICARE, OTHER ==
[2017-10-02 23:05] VITALS: BMI 25.3
--- NOTE | 2017-10-02 23:28 | C.PDOC ---
History Of Present Illness <Xochitl Navarrete - Last Filed: 10/02/17 23:44> <Jose Powell M - Last Filed: 10/03/17 09:55> 52 year old male with PMHx of anxiety is reportedly brought in after waving down an ambulance in the streets of [place]. Patient was recently released from [facility], where he was because of anxiety disorder. Patient denies acute complaints, on examination patient repeats all the questions asked to him. Patient is a poor historian, states he is on psych medication but does not recall the names. Patient denies drug or alcohol use. ( Xochitl Navarrete) History Per: Patient History/Exam Limitations: clinical condition Onset/Duration Of Symptoms: Days Current Symptoms Are (Timing): Still Present Suicide/Self Injury Attempted (Context): None Modifying Factor(s): None Severity: None Associated Symptoms: denies: Depression, Suicidal Thoughts, Suicidal Plan Recent travel outside of the [place]: No Additional History Per: Patient <Xochitl Navarrete - Last Filed: 10/02/17 23:44> <Jose Powell M - Last Filed: 10/03/17 09:55> Chief Complaint (Nursing): Psychiatric Evaluation Past Medical History Reviewed: Historical Data, Nursing Documentation, Vital Signs - Medical History PMH: Anxiety, Back Problems, Depression, Diabetes, Deep Vein Thrombosis (to left leg several years ago), Emphysema, HTN, Hypercholesterolemia, Hyperlipidemia, Schizophrenia Denies: Hepatitis, HIV, Chronic Kidney Disease, Seizures, Sexually Transmitted Disease Surgical History: Hernia Repair Family History: States: Unknown Family Hx - Social History Hx Alcohol Use: No Hx Substance Use: No - Immunization History Hx Influenza Vaccination: No Hx Pneumococcal Vaccination: No <Xochitl Navarrete - Last Filed: 10/02/17 23:44> Vital Signs: Last Vital Signs Temp 98.1 F 10/03/17 06:56 Pulse 61 10/03/17 06:56 Resp 22 10/03/17 06:56 BP 132/75 10/03/17 06:56 Pulse Ox 98 10/03/17 06:56 - [facility] GROUP PSYCHOTHERAPY (06/05/17) INDIVIDUAL PSYCHOTHERAPY, BEHAVIORAL (06/05/17) Review Of Systems Constitutional: Negative for: Fever, Chills Respiratory: Negative for: Cough, Shortness of Breath Gastrointestinal: Negative for: Vomiting, Abdominal Pain Skin: Negative for: Rash Psych: Positive for: Anxiety. Negative for: Depression, Suicidal ideation <Xochitl Navarrete - Last Filed: 10/02/17 23:44> Physical Exam - Physical Exam Appears: Non-toxic, Other (anxious, reluctant to speak) Skin: Normal Color, Warm, Dry Head: Atraumatic, Normacephalic Eye(s): bilateral: Normal Inspection Nose: No Discharge Oral Mucosa: Moist Neck: Normal ROM, Supple Chest: Symmetrical Cardiovascular: Rhythm Regular, No Murmur Respiratory: Normal Breath Sounds, No Rales, No Rhonchi, No Wheezing Gastrointestinal/Abdominal: Soft, No Tenderness, No Guarding, No Rebound Extremity: Normal ROM, No Tenderness, No Swelling Neurological/Psych: Oriented x3 Gait: Steady <Xochitl Navarrete - Last Filed: 10/02/17 23:44> ED Course And Treatment O2 Sat by Pulse Oximetry: 98 (On RA) Pulse Ox Interpretation: Normal <Xochitl Navarrete - Last Filed: 10/02/17 23:44> - Laboratory Results Result Diagrams: 10/02/17 23:49 10/02/17 23:49 <Jose Powell - Last Filed: 10/03/17 09:55> Medical Decision Making <Xochitl Navarrete - Last Filed: 10/02/17 23:44> <Jose Powell M - Last Filed: 10/03/17 09:55> Medical Decision Making: Impression: anxiety disorder Plan: * Labs * UA * Crisis evaluation (Xochitl Navarrete) Disposition <Xochitl Navarrete - Last Filed: 10/02/17 23:44> Discussed With : Selin Karimi Doctor Will See Patient In The: ED Counseled Patient/Family Regarding: Studies Performed, Diagnosis - Disposition Disposition Time: 09:53 <Jose Powell - Last Filed: 10/03/17 09:55> - Disposition Referrals: Selin Karimi MD [Staff Provider] - Disposition: HOME/ ROUTINE Condition: STABLE Additional Instructions: follow up with Dr. Karimi continue your medications at home. Return to ER if symptoms worsens or progress Instructions: Schizophrenia (DC) Forms: [facility] ([place]), General Discharge Instructions - Clinical Impression Clinical Impression: Schizophrenia - Scribe Statement The provider has reviewed the documentation as recorded by the Scribe <Xochitl Navarrete - Last Filed: 10/02/17 23:44> <Jose Powell - Last Filed: 10/03/17 09:55> - Scribe Statement Beto Patton All medical record entries made by the Scribe were at my direction and personally dictated by me. I have reviewed the chart and agree that the record accurately reflects my personal performance of the history, physical exam, medical decision making, and the department course for this patient. I have also personally directed, reviewed, and agree with the discharge instructions and disposition. (Xochitl Navarrete) Addendum <Xochitl Navarrete - Last Filed: 10/02/17 23:44> <Jose Powell - Last Filed: 10/03/17 09:55> Addendum: 10/03/17 09:53 Received patient in s/o pending crisis evaluation. Patient seen by DR. Karimi and okay to discharge home. Patient has not other complaints at this time. ( Jose Powell)
[2017-10-02 23:52] LABS: BASO % 0.6 % (0.0-2.0); EOS # 0.1 K/uL (0.0-0.7); EOS % 1.2 % (0.0-4.0); HEMOGLOBIN 12.5 g/dL (12.0-18.0); LYMPH # 1.3 K/uL (1.0-4.3); LYMPH % 18.7 % (20.0-40.0); MEAN CELL VOLUME 92.2 fL (80.0-94.0); MEAN CORPUSCULAR HEMOGLOBIN 31.3 pg (27.0-31.0); MEAN PLATELET VOLUME 10.2 fL (7.2-11.7); MONO # 0.5 K/uL (0.0-0.8); MONO % 6.5 % (0.0-10.0); NEUT # 5.2 K/uL (1.8-7.0); RBC 3.98 Mil/uL (4.40-5.90); RED CELL DISTRIBUTION WIDTH 14.5 % (11.5-14.5); WHITE BLOOD COUNT 7.2 K/uL (4.8-10.8)
[2017-10-03 00:13] LABS: ALB/GLOB RATIO 1.3 (1.0-2.1); ALBUMIN 4.2 g/dL (3.5-5.0); ALT/SGPT 31 U/L (21-72); AST/SGOT 31 U/L (17-59); BLOOD UREA NITROGEN 11 mg/dL (9-20); GFR AFRICAN-AMERICAN > 60; GFR NON-AFRICAN AMERICAN > 60
[2017-10-03 05:51] LABS: URINE BILIRUBIN NEGATIVE (NEGATIVE); URINE BLOOD NEGATIVE (NEGATIVE); URINE CLARITY Clear (Clear); URINE COLOR YELLOW (YELLOW); URINE GLUCOSE (UA) NEGATIVE (Normal)
[2017-10-03 05:52] LABS: URINE LEUKOCYTE ESTERASE NEGATIVE Leu/uL (Negative); URINE PROTEIN NEGATIVE (NEGATIVE); URINE UROBILINOGEN Normal mg/dL (0.2-1.0)
[2017-10-03 06:17] LABS: BARBITURATES, UR NEGATIVE (NEGATIVE); BENZODIAZEPINES, UR NEGATIVE (NEGATIVE); OPIATES, UR NEGATIVE (NEGATIVE); PHENCYCLIDINE, UR NEGATIVE (NEGATIVE)
[2017-10-03 10:11] VITALS: BP 111/64; PULSE 67; RESP 18; TEMP 98.9; O2SAT 99
== END 2017-10-03 10:55 | disposition home or self-care (01) ==
LOC: C.ER 23:05
DX: F20.9 Schizophrenia, unspecified (principal); E11.9 Type 2 diabetes mellitus without complications; I10 Essential (primary) hypertension; E78.00 Pure hypercholesterolemia, unspecified; F17.210 Nicotine dependence, cigarettes, uncomplicated
CPT/HCPCS: 80053; 81001; 82948; 85025; 99285; G0480